=== PATIENT | male | born 1960 | race African-American/Black ===

== ENCOUNTER 2020-06-12 07:14 | Emergency (ER) | payer MEDICARE, MEDICAID ==
[~2020-06-12] VITALS: Ht 182.9 cm; Wt 78.0 kg
[2020-06-12] MEDS ORDERED: OXYCODONE HCL/ACETAMINOPHEN 5/325MG TABLET PO ONE (08:15)
[2020-06-12] MEDS ORDERED: KETOROLAC 60MG/2ML VIAL IM ONE (08:15)
[2020-06-12 09:27] LABS: CLARITY URINE CLEAR (CLEAR); COLOR URINE YELLOW (YELLOW); KETONES URINE NEGATIVE (NEGATIVE); LEUKOCYTE ESTERASE URINE 3+ (NEGATIVE); NITRITE URINE NEGATIVE (NEGATIVE); OCCULT BLOOD URINE NEGATIVE (NEGATIVE); PH URINE 6.5 (4.5-8.0); PROTEIN URINE NEGATIVE (NEGATIVE); SPECIFIC GRAVITY URINE 1.012 (1.005-1.030); UROBILINOGEN URINE 0.2 E.U./dL (0.2-1.0)
[2020-06-12 10:02] VITALS: BP 134/85
== END 2020-06-12 10:02 | disposition home or self-care (01) ==
LOC: ER 07:14
DX: N39.0 Urinary tract infection, site not specified (principal); M54.5 Low back pain
CPT/HCPCS: 72100; 81003; 87086; 96372; 99284; J1885

== ENCOUNTER 2022-02-15 07:36 | Emergency (ER) | payer MEDICARE, MEDICAID ==
[~2022-02-15] VITALS: Ht 182.9 cm; Wt 80.0 kg
[2022-02-15] MEDS ORDERED: PREDNISONE 20MG TABLET PO STA (08:46)
[2022-02-15] MEDS ORDERED: IPRATROPIUM BROMIDE (0.02%) 0.5MG/2.5ML NEB HHN STA (08:46)
[2022-02-15] MEDS: ALBUTEROL (0.083%) 2.5MG/3ML NEB HHN SCH ×2 (08:50→10:29)
[2022-02-15 09:24] LABS: BASOPHILS % 0.4 % (0.0-2.0); HEMATOCRIT. 48.7 % (42.0-52.0); HEMOGLOBIN. 16.9 g/dL (14.0-18.0); LYMPHOCYTES % 9.4 % (20.0-50.0); MEAN CORPUSCULAR HEMOGLOBIN 34.4 pg (28.0-32.0); MEAN PLATELET VOLUME 8.7 fl (7.4-10.4); MONOCYTES % 9.3 % (2.0-8.0); NEUTROPHILS % 79.9 % (40.0-76.0); PLATELET 198 x1000/uL (130-400); RED BLOOD CELL COUNT 4.92 mill/uL (4.7-6.1); RED CELL DISTRIBUTION WIDTH 13.2 % (11.6-14.6)
[2022-02-15 09:31] LABS: CHLORIDE 109 mEq/L (98-107)
[2022-02-15] MEDS ORDERED: ALBU6.7H15 INH (12:33)
[2022-02-15] MEDS ORDERED: P50 MT (12:33)
[2022-02-15 13:05] VITALS: BP 132/81
== END 2022-02-15 13:11 | disposition home or self-care (01) ==
LOC: ER 07:45
DX: J98.01 Acute bronchospasm (principal); F17.200 Nicotine dependence, unspecified, uncomplicated; Z98.890 Other specified postprocedural states
CPT/HCPCS: 36415; 71045; 80053; 83880; 84484; 85025; 85379; 93005; 94640; 99285; J7512